=== PATIENT | female | born 1990 | race African-American/Black ===

== ENCOUNTER 2019-04-28 22:03 | Emergency (ER) | payer MEDICAID ==
[~2019-04-28] VITALS: Ht 165.1 cm; Wt 77.0 kg
[2019-04-29] MEDS ORDERED: DEXAMETHASONE 10 MG/ML VIAL IM ONE
[2019-04-29 00:40] VITALS: BP 135/88
== END 2019-04-29 01:00 | disposition home or self-care (01) ==
LOC: ER 22:03
DX: L30.9 Dermatitis, unspecified (principal)
CPT/HCPCS: 96372; 99283; J1100

== ENCOUNTER 2019-06-02 19:51 | Emergency (ER) | payer MEDICAID ==
[~2019-06-02] VITALS: Ht 165.1 cm; Wt 78.0 kg
[2019-06-02 20:24] VITALS: BP 134/75
[2019-06-02] MEDS ORDERED: LORAZEPAM 1MG TABLET PO ONE (21:15)
[2019-06-02] MEDS ORDERED: PREDNISONE 20MG TABLET PO ONE (21:15)
== END 2019-06-03 05:48 | disposition home or self-care (01) ==
LOC: ER 19:51
DX: R21 Rash and other nonspecific skin eruption (principal); L30.9 Dermatitis, unspecified; F17.210 Nicotine dependence, cigarettes, uncomplicated
CPT/HCPCS: 99282; J7512